=== PATIENT | male | born 1990 | race Hispanic/Latino ===

== ENCOUNTER 2018-09-08 12:08 | Outpatient (CLI) | payer OTHER ==
--- NOTE | 2018-09-08 13:17 | RAD ---
FOUR VIEWS MANDIBLE: HISTORY: Abscess left external cheek. FINDINGS: There are a few periapical lucencies seen within the left mandible suggesting periapical abscesses. No suspicious sclerotic or lytic osseous lesions are identified. There is a question of a few dental caries involving mandibular teeth. Visualized paranasal sinuses are clear. IMPRESSION: 1. Periapical lucencies on the left suggesting periapical abscesses. 2. No osseous destruction, and no lytic or sclerotic osseous lesions are seen. POS: [facility]
== END 2018-09-08 12:09 | disposition home or self-care (01) ==
LOC: BICRAD 12:08
PROVIDERS: ATTEND Family Medicine
DX: L02.01 Cutaneous abscess of face (principal)
CPT/HCPCS: 70110